=== PATIENT | female | born 1975 | race Caucasian/White ===

== ENCOUNTER 2021-03-22 17:30 | Outpatient (CLI) | payer BC | END 2021-03-22 17:31 | disposition home or self-care (01) | LOC: SLEEPLAB 17:30 | PROVIDERS: ATTEND Otolaryngology Plastic Surgery within the Head & Neck | DX: G47.33 Obstructive sleep apnea (adult) (pediatric) (principal) | CPT/HCPCS: 95806 ==

== ENCOUNTER 2021-12-07 09:33 | Outpatient (CLI) | payer BC | END 2021-12-07 09:34 | disposition home or self-care (01) | LOC: RAD 09:33 | PROVIDERS: ATTEND Internal Medicine Critical Care Medicine | DX: R06.09 Other forms of dyspnea (principal) | CPT/HCPCS: 71046 ==